=== PATIENT | female | born 1955 | race Caucasian/White ===

== ENCOUNTER 2019-10-29 10:25 | Inpatient (IN) ==
[2019-10-29] MEDS ORDERED: ONDANSETRON 4 MG/2 ML VIAL IV PRN (10:42)
[2019-10-29] MEDS ORDERED: MORPHINE 4 MG/1 ML VIAL IV PRN ×3 (10:42→16:01)
[2019-10-29 13:21] LABS: Basophils % 0.3 % (0.0-0.8); Eosinophils % 0.1 % (0.00-10.9); Hematocrit 38.1 VOL% (35.7-47.0); Hemoglobin 12.5 GM/DL (12.0-16.0); Immature Granulocytes % 0.8 %; Lymphocytes # 1.1 10*3/uL (1.4-4.0); Lymphocytes % 8.5 % (21.3-54.2); Mean Corpuscular HGB Conc 32.8 GM/DL (32-36); Mean Corpuscular Volume 91.4 FL (87-102); Mean Platelet Volume 8.4 FL (9.6-12.0); Monocytes % 5.8 % (1.7-12.7); Neutrophils % 84.5 % (38.7-73.9); Platelet Count 496 T/CUMM (130-400); Red Blood Count 4.17 MC/CUMM (3.8-5.5); Red Cell Distribution Width 12.6 % (9.3-17.3); White Blood Count 13.2 T/CUMM (4-12)
[2019-10-29 13:36] LABS: Albumin 2.7 G/DL (3.4-5.0); Bilirubin,Total 0.7 MG/DL (0.2-1.0); Calcium 9.4 MG/DL (8.5-10.1); Osmolality,Calculated 255.1 MOS/KG (273-304); Total Protein 8.1 G/DL (6.4-8.3)
[2019-10-29] MEDS: SODIUM CHLORIDE 0.9% 1,000 ML IV SCH (15:09)
[2019-10-29] MEDS: PIPERACILLIN/TAZOBACTAM 3,375 MG in SODIUM CHLORIDE 0.9% 100 ML IV SCH ×2 (15:09→22:28)
[2019-10-29] MEDS ORDERED: KETOROLAC 15 MG/1 ML VIAL IV PRN (16:04)
[2019-10-29 16:50] LABS: Apearance,Urine CLOUDY (Clear); Bilirubin,Urine Negative (Negative); Blood, Urine Small mg/dL (Negative); Glucose,Urine (UA) 50 mg/dL (Negative); Ketones,Urine Negative (Negative); Mucus,Urine Many /LPF (Occasional); Nitrite,Urine Negative (Negative); Protein,Urine 100 MG/DL; RBC,Urine 38 /HPF (0-4); Squamous Epithelial Cell,Urine Moderate /HPF (0-10); Urine Color Dark Yellow (Yellow); Urine Specific Gravity 1.028 (1.001-1.035); WBC,Urine 21 /HPF (0-6)
[2019-10-29] MEDS: metroNIDAZOLE INJ 500 MG in PREMIX 1 EACH IV SCH (20:03)
[2019-10-29] MEDS: DOCUSATE SODIUM 100 MG CAPSULE PO SCH (20:50)
[2019-10-29] MEDS: ANASTROZOLE 1 MG TABLET PO SCH (20:50)
[2019-10-29] MEDS ORDERED: ENOXAPARIN 40 MG/0.4 ML SYRINGE SUBCUT SCH (21:00)
[2019-10-30] MEDS: metroNIDAZOLE INJ 500 MG in PREMIX 1 EACH IV SCH (04:11)
[2019-10-30] MEDS: PIPERACILLIN/TAZOBACTAM 3,375 MG in SODIUM CHLORIDE 0.9% 100 ML IV SCH ×3 (06:24→22:17)
[2019-10-30] MEDS: PANTOPRAZOLE 40 MG TABLET PO SCH (06:24)
[2019-10-30] MEDS: DOCUSATE SODIUM 100 MG CAPSULE PO SCH ×2 (08:59→20:58)
[2019-10-30] MEDS: NEBIVOLOL 5 MG TABLET PO SCH (08:59)
[2019-10-30] MEDS: ACETAMINOPHEN 325 MG TABLET PO PRN ×2 (08:59→19:45)
[2019-10-30] MEDS: PHENAZOPYRIDINE 95 MG TABLET PO SCH ×3 (09:00→17:52)
[2019-10-30] MEDS: SODIUM CHLORIDE 0.9% 1,000 ML IV SCH (14:46)
[2019-10-30] MEDS: ANASTROZOLE 1 MG TABLET PO SCH (20:58)
[2019-10-31] MEDS: PIPERACILLIN/TAZOBACTAM 3,375 MG in SODIUM CHLORIDE 0.9% 100 ML IV SCH ×3 (05:53→22:04)
[2019-10-31] MEDS: PANTOPRAZOLE 40 MG TABLET PO SCH (05:55)
[2019-10-31 06:11] LABS: Basophils # 0.1 10*3/uL (0.0-0.2); Basophils % 0.4 % (0.0-0.8); Eosinophils # 0.1 10*3/uL (0.0-0.87); Eosinophils % 1.2 % (0.00-10.9); Hematocrit 36.1 VOL% (35.7-47.0); Hemoglobin 11.2 GM/DL (12.0-16.0); Immature Granulocytes % 0.7 %; Immature Granulocytes Absolute 0.08 #; Lymphocytes # 0.8 10*3/uL (1.4-4.0); Lymphocytes % 6.2 % (21.3-54.2); Mean Corpuscular Volume 93.5 FL (87-102); Mean Platelet Volume 8.3 FL (9.6-12.0); Monocytes % 5.5 % (1.7-12.7); Platelet Count 500 T/CUMM (130-400); Red Blood Count 3.86 MC/CUMM (3.8-5.5); Red Cell Distribution Width 12.9 % (9.3-17.3); White Blood Count 12.1 T/CUMM (4-12)
[2019-10-31 06:34] LABS: Calcium 8.5 MG/DL (8.5-10.1); Osmolality,Calculated 264.2 MOS/KG (273-304)
[2019-10-31] MEDS: DOCUSATE SODIUM 100 MG CAPSULE PO SCH ×2 (08:57→20:15)
[2019-10-31] MEDS: PHENAZOPYRIDINE 95 MG TABLET PO SCH ×3 (08:57→16:53)
[2019-10-31] MEDS: NEBIVOLOL 5 MG TABLET PO SCH (08:58)
[2019-10-31] MEDS: SODIUM CHLORIDE 0.9% 1,000 ML IV SCH (11:47)
[2019-10-31] MEDS: ANASTROZOLE 1 MG TABLET PO SCH (20:15)
[2019-11-01] MEDS: SODIUM CHLORIDE 0.9% 1,000 ML IV SCH ×2 (02:00→03:35)
[2019-11-01] MEDS: ACETAMINOPHEN 325 MG TABLET PO PRN (04:09)
[2019-11-01] MEDS: PIPERACILLIN/TAZOBACTAM 3,375 MG in SODIUM CHLORIDE 0.9% 100 ML IV SCH ×3 (05:34→21:12)
[2019-11-01] MEDS: PANTOPRAZOLE 40 MG TABLET PO SCH (05:35)
[2019-11-01] MEDS: DOCUSATE SODIUM 100 MG CAPSULE PO SCH ×2 (08:36→21:12)
[2019-11-01] MEDS: NEBIVOLOL 5 MG TABLET PO SCH (08:36)
[2019-11-01] MEDS: PHENAZOPYRIDINE 95 MG TABLET PO SCH ×3 (08:36→17:16)
[2019-11-01] MEDS: SODIUM CHLOR 0.9% KCL 20 MEQ 20 MEQ/1,000 ML BAG IV SCH (10:15)
[2019-11-01] MEDS: POTASSIUM CHLORIDE RIDER 10 MEQ in PREMIX 1 EACH IV SCH ×2 (10:15→12:20)
[2019-11-01] MEDS: SIMETHICONE CHEW 80 MG TABLET PO PRN ×2 (17:17→21:12)
[2019-11-01] MEDS: ANASTROZOLE 1 MG TABLET PO SCH (21:12)
[2019-11-02] MEDS: PIPERACILLIN/TAZOBACTAM 3,375 MG in SODIUM CHLORIDE 0.9% 100 ML IV SCH ×3 (05:35→21:29)
[2019-11-02] MEDS: PANTOPRAZOLE 40 MG TABLET PO SCH (05:36)
[2019-11-02 05:50] LABS: Basophils # 0.1 10*3/uL (0.0-0.2); Basophils % 0.4 % (0.0-0.8); Eosinophils # 0.2 10*3/uL (0.0-0.87); Eosinophils % 1.4 % (0.00-10.9); Hematocrit 34.9 VOL% (35.7-47.0); Immature Granulocytes % 0.9 %; Immature Granulocytes Absolute 0.12 #; Lymphocytes # 0.9 10*3/uL (1.4-4.0); Lymphocytes % 6.6 % (21.3-54.2); Mean Corpuscular HGB Conc 31.5 GM/DL (32-36); Mean Corpuscular Volume 93.1 FL (87-102); Mean Platelet Volume 8.2 FL (9.6-12.0); Monocytes % 5.1 % (1.7-12.7); Neutrophils % 85.6 % (38.7-73.9); Platelet Count 525 T/CUMM (130-400); Red Blood Count 3.75 MC/CUMM (3.8-5.5); Red Cell Distribution Width 12.9 % (9.3-17.3); White Blood Count 13.3 T/CUMM (4-12)
[2019-11-02] MEDS: SODIUM CHLOR 0.9% KCL 20 MEQ 20 MEQ/1,000 ML BAG IV SCH ×2 (05:52→05:53)
[2019-11-02 06:09] LABS: Albumin 1.7 G/DL (3.4-5.0); Bilirubin,Total 0.6 MG/DL (0.2-1.0); Calcium 8.7 MG/DL (8.5-10.1); Osmolality,Calculated 259.5 MOS/KG (273-304); Total Protein 5.9 G/DL (6.4-8.3)
[2019-11-02] MEDS: PHENAZOPYRIDINE 95 MG TABLET PO SCH ×3 (08:59→17:27)
[2019-11-02] MEDS: DOCUSATE SODIUM 100 MG CAPSULE PO SCH ×2 (08:59→20:32)
[2019-11-02] MEDS: SIMETHICONE CHEW 80 MG TABLET PO PRN ×3 (08:59→20:32)
[2019-11-02] MEDS: NEBIVOLOL 5 MG TABLET PO SCH (08:59)
[2019-11-02] MEDS: ANASTROZOLE 1 MG TABLET PO SCH (20:32)
[2019-11-03] MEDS: SODIUM CHLOR 0.9% KCL 20 MEQ 20 MEQ/1,000 ML BAG IV SCH ×2 (03:30→04:08)
[2019-11-03] MEDS: PIPERACILLIN/TAZOBACTAM 3,375 MG in SODIUM CHLORIDE 0.9% 100 ML IV SCH ×3 (05:30→22:03)
[2019-11-03 06:15] LABS: Basophils # 0.1 10*3/uL (0.0-0.2); Basophils % 0.4 % (0.0-0.8); Eosinophils # 0.4 10*3/uL (0.0-0.87); Eosinophils % 3.1 % (0.00-10.9); Hematocrit 32.7 VOL% (35.7-47.0); Hemoglobin 10.5 GM/DL (12.0-16.0); Immature Granulocytes % 0.8 %; Immature Granulocytes Absolute 0.09 #; Lymphocytes # 0.9 10*3/uL (1.4-4.0); Lymphocytes % 7.6 % (21.3-54.2); Mean Corpuscular HGB Conc 32.1 GM/DL (32-36); Mean Corpuscular Volume 92.4 FL (87-102); Mean Platelet Volume 8.4 FL (9.6-12.0); Monocytes % 4.9 % (1.7-12.7); Neutrophils % 83.2 % (38.7-73.9); Platelet Count 612 T/CUMM (130-400); Red Blood Count 3.54 MC/CUMM (3.8-5.5); Red Cell Distribution Width 12.8 % (9.3-17.3); White Blood Count 11.5 T/CUMM (4-12)
[2019-11-03 06:37] LABS: Albumin 1.8 G/DL (3.4-5.0); Bilirubin,Total 1.5 MG/DL (0.2-1.0); Calcium 8.8 MG/DL (8.5-10.1); Osmolality,Calculated 263.2 MOS/KG (273-304)
[2019-11-03] MEDS: DOCUSATE SODIUM 100 MG CAPSULE PO SCH ×2 (09:44→20:41)
[2019-11-03] MEDS: PHENAZOPYRIDINE 95 MG TABLET PO SCH ×3 (09:45→17:39)
[2019-11-03] MEDS: NEBIVOLOL 5 MG TABLET PO SCH (09:46)
[2019-11-03] MEDS: PANTOPRAZOLE 40 MG TABLET PO SCH (09:46)
[2019-11-03] MEDS: ANASTROZOLE 1 MG TABLET PO SCH (20:40)
[2019-11-04] MEDS: PIPERACILLIN/TAZOBACTAM 3,375 MG in SODIUM CHLORIDE 0.9% 100 ML IV SCH ×3 (05:47→21:43)
[2019-11-04] MEDS: PANTOPRAZOLE 40 MG TABLET PO SCH (05:48)
[2019-11-04 07:04] LABS: Basophils % 0.5 % (0.0-0.8); Eosinophils # 0.3 10*3/uL (0.0-0.87); Eosinophils % 4.2 % (0.00-10.9); Hematocrit 36.2 VOL% (35.7-47.0); Hemoglobin 11.1 GM/DL (12.0-16.0); Immature Granulocytes Absolute 0.08 #; Lymphocytes % 12.8 % (21.3-54.2); Mean Corpuscular HGB Conc 30.7 GM/DL (32-36); Mean Corpuscular Volume 93.8 FL (87-102); Mean Platelet Volume 8.2 FL (9.6-12.0); Monocytes % 5.2 % (1.7-12.7); Neutrophils % 76.3 % (38.7-73.9); Platelet Count 722 T/CUMM (130-400); Red Blood Count 3.86 MC/CUMM (3.8-5.5); Red Cell Distribution Width 13.1 % (9.3-17.3); White Blood Count 8.1 T/CUMM (4-12)
[2019-11-04 07:26] LABS: Albumin 1.9 G/DL (3.4-5.0); Bilirubin,Total 0.4 MG/DL (0.2-1.0); Calcium 8.5 MG/DL (8.5-10.1); Total Protein 6.2 G/DL (6.4-8.3)
[2019-11-04 07:28] LABS: Band Neutrophils 1 % (0-10); Eosinophils 4 % (0-10); Hypochromasia 1+; Lymphocytes 9 % (20-55); Platelet Estimate Increased; Segmented Neutrophils 81 % (50-85); Total Cells Counted 100
[2019-11-04] MEDS: PHENAZOPYRIDINE 95 MG TABLET PO SCH ×3 (08:20→16:07)
[2019-11-04] MEDS: DOCUSATE SODIUM 100 MG CAPSULE PO SCH ×3 (09:05→21:44)
[2019-11-04] MEDS: NEBIVOLOL 5 MG TABLET PO SCH (09:06)
[2019-11-04] MEDS: POTASSIUM CHLORIDE RIDER 10 MEQ in PREMIX 1 EACH IV SCH ×3 (10:10→15:00)
[2019-11-04] MEDS ORDERED: POTASSIUM CHLORIDE RIDER 100 ML IV ONE (14:48)
[2019-11-04] MEDS: SIMETHICONE CHEW 80 MG TABLET PO PRN (17:46)
[2019-11-04] MEDS: ANASTROZOLE 1 MG TABLET PO SCH (21:44)
[2019-11-05] MEDS: PANTOPRAZOLE 40 MG TABLET PO SCH (05:36)
[2019-11-05] MEDS: PIPERACILLIN/TAZOBACTAM 3,375 MG in SODIUM CHLORIDE 0.9% 100 ML IV SCH (05:36)
[2019-11-05 06:35] LABS: Basophils % 0.5 % (0.0-0.8); Eosinophils # 0.3 10*3/uL (0.0-0.87); Eosinophils % 4.9 % (0.00-10.9); Hematocrit 33.9 VOL% (35.7-47.0); Hemoglobin 10.6 GM/DL (12.0-16.0); Immature Granulocytes % 1.3 %; Immature Granulocytes Absolute 0.08 #; Lymphocytes # 0.9 10*3/uL (1.4-4.0); Lymphocytes % 14.8 % (21.3-54.2); Mean Corpuscular HGB Conc 31.3 GM/DL (32-36); Mean Corpuscular Volume 92.4 FL (87-102); Monocytes % 7.2 % (1.7-12.7); Neutrophils % 71.3 % (38.7-73.9); Platelet Count 634 T/CUMM (130-400); Red Blood Count 3.67 MC/CUMM (3.8-5.5); Red Cell Distribution Width 13.1 % (9.3-17.3); White Blood Count 6.1 T/CUMM (4-12)
[2019-11-05 06:55] LABS: Alanine Aminotransferase 26 U/L (13-56); Alkaline Phosphatase 202 U/L (45-117); Aspartate Amino Transferase 21 U/L (0-37); Blood Urea Nitrogen < 1 MG/DL (7-18); Calcium 8.4 MG/DL (8.5-10.1); Estimated Glom Filtration Rate 122 ML/MIN; Glucose 90 MG/DL (74-106); Osmolality,Calculated 269.2 MOS/KG (273-304); Total Protein 5.9 G/DL (6.4-8.3)
[2019-11-05 06:59] LABS: Hypochromasia 1+; Microcytosis Slight; Platelet Estimate Increased
[2019-11-05] MEDS: PHENAZOPYRIDINE 95 MG TABLET PO SCH ×2 (07:11→11:32)
[2019-11-05] MEDS ORDERED: ERTAPENEM 1,000 MG VIAL IM SCH (08:30)
[2019-11-05] MEDS: DOCUSATE SODIUM 100 MG CAPSULE PO SCH (08:55)
[2019-11-05] MEDS: NEBIVOLOL 5 MG TABLET PO SCH (08:55)
[2019-11-05] MEDS: SODIUM CHLOR 0.9% KCL 20 MEQ 20 MEQ/1,000 ML BAG IV SCH ×2 (08:55→12:00)
[2019-11-05] MEDS ORDERED: ERTAPENEM 1,000 MG in SODIUM CHLORIDE 0.9% 100 ML IV ONE (10:00)
[2019-11-05 12:14] VITALS: BP 131/71
== END 2019-11-05 13:14 | disposition home health service (06) | DRG 392 ==
LOC: N.2E 12:34
PROVIDERS: ADMIT Family Medicine; ATTEND Family Medicine